=== PATIENT | female | born 1935 | race Caucasian/White ===

== ENCOUNTER 2017-07-27 18:25 | Observation (INO) | payer MEDICARE, OTHER ==
[~2017-07-27] VITALS: Ht 157.5 cm; Wt 92.4 kg
[~2017-07-27 18:25] MED LIST: BACTRIM DS1 TAB PO; CITALOPRAM HYDR10 MG PO; COUMADIN5 MG PO; LASIX 40 MG40 MG/TAB PO; LEVOTHYROXIN50 MCG PO; LOPRESSOR50 M1 PO; OXYBUTYNIN5 M1 PO; PRAVASTATIN SOD20 MG PO; SENNOSIDES-DOCU1 TAB PO; TRAMADOL HCL50 MG PO
--- NOTE | 2017-07-27 18:33 | NUR ---
EMS TO ER ROOM 14, TO BED
[2017-07-27 19:05] LABS: HEMATOCRIT 30.9 % (37.0-47.0); HEMOGLOBIN 9.5 g/dl (12.0-16.0); MEAN CELL VOLUME 93.4 fL CALC (80.0-100.0); MEAN CORPUSCULAR HGB 28.7 pG CALC (26.0-32.0); MEAN CORPUSCULAR HGB CONC 30.7 g/L CALC (32.0-36.0); NEUT# 14.73 thou/uL (2.00-7.15); RED BLOOD COUNT 3.31 mill/uL (4.20-5.60); RED CELL DISTRI WIDTH 15.8 % (11.5-15.5)
[2017-07-27 19:20] LABS: ALBUMIN 3.4 g/dL (3.2-5.0); ALKALINE PHOSPHATASE 71 u/l (38-126); ANION GAP 19 (6-22 (CALC)); BILIRUBIN, TOTAL 0.5 mg/dL (0.0-1.4); BUN 26 mg/dL (8-23); BUN/CREATININE RATIO 18 (12-20 (CALC)); CARBON DIOXIDE 18 mmol/l (22-30); CHLORIDE 103 mmol/l (95-108); CREATININE 1.5 mg/dL (0.5-1.0); GFR 33 ML/MIN (>=60 (CALC)); GFR FOR AFR.AMER. 40 ML/MIN (>=60 (CALC)); POTASSIUM 4.3 mmol/l (3.5-5.1); SGOT/AST 28 u/l (9-36); SGPT/ALT 24 u/l (11-66); SODIUM 137 mmol/l (137-146); TOTAL PROTEIN 6.4 g/dL (6.3-8.2)
[2017-07-27 19:21] LABS: IMMATURE GRANULOCYTES 9.5 % (0.0-1.0)
[2017-07-27 19:33] LABS: MYOGLOBIN 49 ng/mL (0 - 62)
[2017-07-27] MEDS ORDERED: CALCIUM600 MG PO (20:09)
[2017-07-27] MEDS ORDERED: GLUCOSAMINE CHONDROI PO (20:09)
[2017-07-27] MEDS ORDERED: PREDNISONE5 M2 PO (20:14)
[2017-07-27 21:15] VITALS: BP 98/64
--- NOTE | 2017-07-27 21:15 | NUR ---
RECEIVED FROM ER VIA STRETCHER ACCOMPANIED BY ER NURSE, OUT OF STRETCHER TO STANDING SCALE THEN TO BED WITH TWO PERSON ASSISTANCE. A/O X3, RESPIRATIONS EVEN AND UNLABORED ON O2 @2L VIA NC. ORIENTED TO USE CALL LIGHT FOR ASSISTANCE, NS INFUSING TO LAC AT 100/HR. DENIES PAIN OR DISCOMFORT, PROVIDED WITH JELLOW PER PT REQUEST. WILL CONTINUE TO MONITOR.
--- NOTE | 2017-07-27 21:27 | NUR ---
PT ADMITTED TO ROOM 282, REPORT WAS TO CATHERINE PRIOR TO ADMISSION.
[2017-07-27 22:05] LABS: INTERNATIONAL NORMALIZED RATIO 5.2 RATIO (0.7-1.3)
[2017-07-28 00:02] VITALS: BP 92/51
--- NOTE | 2017-07-28 01:20 | NUR ---
OOB TO BSC WITH ONE PERSON ASSISTANCE, PT SOB WITH ACTIVITY, C/O OF FEELING HOT. VOIDING [place]ANT [place] URINE THAT WAS ABSORBED BY TOILET PAPER, WILL OBTAIN SPECIMEN WITH NEXT VOID. JESSIE HALL LPN CALLED STATES PT'S HR UP TO 170'S, IN TO ROOM FOR VITALS CHECK. B/P 96/50, HR DOWN TO 120'S. NS INFUSING TO LAC AT 100CC/HR. WILL CONTINUE TO MONITOR.
[2017-07-28 03:07] LABS: HEMATOCRIT 21.9 % (37.0-47.0); HEMOGLOBIN 7.1 g/dl (12.0-16.0)
[2017-07-28 03:20] LABS: CREATININE 1.7 mg/dL (0.5-1.0); POTASSIUM 4.6 mmol/l (3.5-5.1)
--- NOTE | 2017-07-28 03:45 | NUR ---
1ST UNIT OF BLOOD SPIKED BY Naomi OZUNA RN, O-NEGATIVE EMERGENCY.
--- NOTE | 2017-07-28 03:55 | NUR ---
ACCUCHECK 363, 18FR, KINSEY INSERTED BY KATERIN FERRERA, TOLERATED WELL.
--- NOTE | 2017-07-28 04:00 | NUR ---
ATTEMPTED TO CALL SIVAKUMAR/PT'S SON AT [phone], AND PT'S BOYFRIED/BREANNA VELASQUEZ AT [phone] TO UPDATE ON PT'S CONDITION PER PT'S REQUEST, MESSAGE LEFT NO ANSWEAR AT THIS TIME.
[2017-07-28 04:08] VITALS: BP 90/54
--- NOTE | 2017-07-28 04:21 | NUR ---
FIRST UNIT OF FFP'S SPIKED BY KATERIN RN, INFUSING TO RFA WITH NO COMPLICATIONS.
[2017-07-28 04:22] LABS: INTERNATIONAL NORMALIZED RATIO 5.5 RATIO (0.7-1.3)
[2017-07-28 04:23] LABS: PROTHROMBIN TIME 64.1 SECONDS (9.0-12.5)
[2017-07-28 04:43] VITALS: BP 84/43
--- NOTE | 2017-07-28 04:46 | NUR ---
1ST UNIT OF FFP COMPLETE, 2ND UNITS SPIKED BY KATERIN RN, INFUSING WITH NO COMPLICATIONS, PT A/O X3, RESPIRATIONS EVEN AND UNLABORED. 1ST UNIT OF PRBC'S CONTINUE TO INFUSE TO LAC WITH NO COMPLICATIONS.
[2017-07-28 05:04] VITALS: BP 104/49
--- NOTE | 2017-07-28 05:20 | NUR ---
CALL RECEIVED FROM IBRAHIMA WITH [facility] @ 0065. ADVISED PT HAS BEEN ACCEPTED TO [facility] UNDER SERVICES OF DR CHEPE PERKINS (HOSPITALIST) AND DR YAZAN MARIN (GOLD PLATER). ASKED TO FAX FACESHEET TO [phone], WILL CALL BACK WITH ROOM ASSIGNMENT ONCE AVAILABLE.
[2017-07-28 05:35] VITALS: BP 102/67
--- NOTE | 2017-07-28 05:52 | NUR ---
1ST UNIT OF PRBC'S COMPLETE, 2ND UNIT OF PRBC'S SPIKED BY CHRISTIANE FERRERA, INFUSING WITH NO COMPLICATIONS. PT IS A/O X3, RESPIRATIONS EVEN AND UNLABORED. HR 116.
--- NOTE | 2017-07-28 06:11 | NUR ---
CONTACTED [facility] @ [phone], SPOKE WITH IBRAHIMA. PT INFORMATION PROVIDED. ADVISED WOULD CONTACT HOSPITALIST FOR DOCTOR TO DOCTOR CONFERENCE.
--- NOTE | 2017-07-28 06:12 | NUR ---
CALL PLACED TO [facility] @ 4414. SPOKE WITH IBRAHIMA. ADVISED THAT HOSPITALIST IS CURRENTLY BUSY AND WOULD CONTACT PHYSICIAN SOON POSSIBLE.
[2017-07-28 06:13] VITALS: BP 112/57
--- NOTE | 2017-07-28 06:14 | NUR ---
CALL RECEIVED GEETHA ALEXANDRA WITH [facility] @ [phone]. CONNECTED DR RUSH WITH DR CHEPE PERKINS ([facility] HOSPITALIST). ACCEPTS PT FOR TRANSFER, PER DR PERKINS WOULD HAVE WELL DIGGER ON FOR PT CARE.
--- NOTE | 2017-07-28 06:15 | NUR ---
CALL RECEIVED FROM IBRAHIMA WITH [facility]. BED ASSIGNMENT MADE TO ICU 5TH FLOOR RM # [id number]. REPORT # [phone].
--- NOTE | 2017-07-28 06:19 | NUR ---
CALL PLACED TO [facility] @ 0557, PT INFORMATION GIVEN TO KALLI GARCIA 30-40 MIN.
--- NOTE | 2017-07-28 06:36 | NUR ---
NURSE TO NURSE REPORT GIVEN TO DAILY ZAMORA RN AT [facility], PT'S ROOM ASSIGNEMENT ICU 5TH FLOOR [id number].
--- NOTE | 2017-07-28 06:45 | NUR ---
TRANSFERRED TO [facility] VIA STRETCHER ACCOMPANIED BY [facility]. ALL BELONGINS SENT WITH PT.
== END 2017-07-28 06:45 | disposition short-term general hospital (02) ==
LOC: ED 18:25 → ED-I 19:36 → ED 19:56 → MS2 19:57
PROVIDERS: Emergency Medicine; Nurse Practitioner Family; ADMIT Internal Medicine; ATTEND Internal Medicine
PROC: 30233K1 Transfusion of Nonautologous Frozen Plasma into Peripheral Vein, Percutaneous Approach (ICD-10-PCS; principal; 2017-07-28)
PROC: 30233N1 Transfusion of Nonautologous Red Blood Cells into Peripheral Vein, Percutaneous Approach (ICD-10-PCS; 2017-07-28)
PROC: 30233K1 Transfusion of Nonautologous Frozen Plasma into Peripheral Vein, Percutaneous Approach (ICD-10-PCS; 2017-07-28)
PROC: 30233N1 Transfusion of Nonautologous Red Blood Cells into Peripheral Vein, Percutaneous Approach (ICD-10-PCS; 2017-07-28)
DX: M79.81 Nontraumatic hematoma of soft tissue (principal); D68.32 Hemorrhagic disorder due to extrinsic circulating anticoagulants; T45.515A Adverse effect of anticoagulants, initial encounter; J44.1 Chronic obstructive pulmonary disease with (acute) exacerbation; I48.91 Unspecified atrial fibrillation; I11.0 Hypertensive heart disease with heart failure; I50.9 Heart failure, unspecified; D50.0 Iron deficiency anemia secondary to blood loss (chronic)
CPT/HCPCS: P9016; S0164

== ENCOUNTER 2019-08-07 17:54 | Inpatient (IN) | payer MEDICARE, OTHER ==
[~2019-08-07] VITALS: Ht 157.5 cm; Wt 94.1 kg
[~2019-08-07 17:54] MED LIST changes: +CALCIUM600 MG PO; +GLUCOSAMINE CHONDROI PO; +PREDNISONE5 M2 PO
[2019-08-07 18:56] LABS: HEMATOCRIT 43.5 % (37.0-47.0); HEMOGLOBIN 14.1 g/dl (12.0-16.0); IMMATURE GRANULOCYTES 0.8 % (0.0-5.0); MEAN CORPUSCULAR HGB 28.4 pG CALC (26.0-32.0); MEAN CORPUSCULAR HGB CONC 32.4 g/L CALC (32.0-36.0); NEUT# 5.16 thou/uL (2.00-7.15); RED BLOOD COUNT 4.96 mill/uL (4.20-5.60); RED CELL DISTRI WIDTH 15.3 % (11.5-15.5)
[2019-08-07 18:59] LABS: MEAN CELL VOLUME 87.7 fL CALC (80.0-100.0)
[2019-08-07 19:10] LABS: ALBUMIN 4.4 g/dL (3.2-5.0); ALKALINE PHOSPHATASE 108 u/l (38-126); ANION GAP 15 (6-22 (CALC)); BILIRUBIN, TOTAL 1.5 mg/dL (0.0-1.4); BUN 13 mg/dL (8-23); BUN/CREATININE RATIO 16 (12-20 (CALC)); CHLORIDE 100 mmol/l (95-108); CREATININE 0.8 mg/dL (0.5-1.0); GFR > 60 ML/MIN (>=60 (CALC)); GFR FOR AFR.AMER. > 60 ML/MIN (>=60 (CALC)); POTASSIUM 4.3 mmol/l (3.5-5.1); SGOT/AST 43 u/l (9-36); SODIUM 134 mmol/l (137-146); TOTAL PROTEIN 7.7 g/dL (6.3-8.2)
[2019-08-07 19:11] LABS: CARBON DIOXIDE 23 mmol/l (22-30)
[2019-08-07 19:22] LABS: MYOGLOBIN 41 ng/mL (0 - 62)
[2019-08-07 19:31] LABS: PROTHROMBIN TIME 48.4 SECONDS (9.0-12.5)
[2019-08-07 20:45] VITALS: BP 170/70
[2019-08-07 21:00] VITALS: BP 133/63
[2019-08-07 21:15] VITALS: BP 143/78
[2019-08-07 21:30] VITALS: BP 143/68
[2019-08-07 22:00] VITALS: BP 115/66
[2019-08-07 23:00] VITALS: BP 112/66
[2019-08-08] VITALS (10 sets, daily range): BP systolic 111–167; BP diastolic 56–84
[2019-08-08 05:12] LABS: URINE BILIRUBIN - DIPSTICK NEGATIVE (NEGATIVE); URINE BLOOD DIPSTICK TRACE-INTACT (NEGATIVE); URINE COLOR YELLOW; URINE GLUCOSE - DIPSTICK NEGATIVE (NEGATIVE); URINE KETONE NEGATIVE (NEGATIVE); URINE NITRITE - DIPSTICK NEGATIVE (Negative); URINE PROTEIN - DIPSTICK 30 mg/dL (NEG-TRACE); URINE SPECIFIC GRAVITY 1.025; URINE UROBILINOGEN - DIPSTICK 0.2 E.U./dL (0.2)
[2019-08-08 05:14] LABS: URINE LEUK ESTERASE TRACE (NEGATIVE)
[2019-08-08 05:17] LABS: URINE RBC 0-2 RBC/hpf (0-5); URINE WBC 0-2 WBC/hpf (0-5)
[2019-08-08 05:18] LABS: URINE EPITHELIAL CELLS MODERATE EPI/hpf (0-FEW); URINE MUCUS MODERATE hpf (NONE-FEW)
[2019-08-08 05:25] LABS: HEMATOCRIT 41.9 % (37.0-47.0); HEMOGLOBIN 13.6 g/dl (12.0-16.0); IMMATURE GRANULOCYTES 1.2 % (0.0-5.0); MEAN CELL VOLUME 88.2 fL CALC (80.0-100.0); MEAN CORPUSCULAR HGB 28.6 pG CALC (26.0-32.0); MEAN CORPUSCULAR HGB CONC 32.5 g/L CALC (32.0-36.0); NEUT# 4.47 thou/uL (2.00-7.15); RED BLOOD COUNT 4.75 mill/uL (4.20-5.60); RED CELL DISTRI WIDTH 15.4 % (11.5-15.5)
[2019-08-08 06:00] LABS: ALBUMIN 3.9 g/dL (3.2-5.0); ALKALINE PHOSPHATASE 88 u/l (38-126); ANION GAP 15 (6-22 (CALC)); BILIRUBIN, TOTAL 1.4 mg/dL (0.0-1.4); BUN 14 mg/dL (8-23); BUN/CREATININE RATIO 15 (12-20 (CALC)); CARBON DIOXIDE 22 mmol/l (22-30); CHLORIDE 101 mmol/l (95-108); GFR 53 ML/MIN (>=60 (CALC)); GFR FOR AFR.AMER. > 60 ML/MIN (>=60 (CALC)); POTASSIUM 4.1 mmol/l (3.5-5.1); SGOT/AST 35 u/l (9-36); SODIUM 134 mmol/l (137-146)
[2019-08-09] VITALS: BP 151/102
[2019-08-09 04:00] VITALS: BP 156/72
[2019-08-09 05:16] LABS: HEMOGLOBIN 13.1 g/dl (12.0-16.0); MEAN CELL VOLUME 90.7 fL CALC (80.0-100.0); MEAN CORPUSCULAR HGB 28.3 pG CALC (26.0-32.0); MEAN CORPUSCULAR HGB CONC 31.2 g/L CALC (32.0-36.0); RED BLOOD COUNT 4.63 mill/uL (4.20-5.60); RED CELL DISTRI WIDTH 15.4 % (11.5-15.5)
[2019-08-09 05:39] LABS: ANION GAP 10 (6-22 (CALC)); BUN 16 mg/dL (8-23); BUN/CREATININE RATIO 19 (12-20 (CALC)); CARBON DIOXIDE 26 mmol/l (22-30); CHLORIDE 102 mmol/l (95-108); CREATININE 0.8 mg/dL (0.5-1.0); GFR > 60 ML/MIN (>=60 (CALC)); GFR FOR AFR.AMER. > 60 ML/MIN (>=60 (CALC)); POTASSIUM 4.2 mmol/l (3.5-5.1); SODIUM 134 mmol/l (137-146)
[2019-08-09 08:00] VITALS: BP 134/61
[2019-08-09 10:43] LABS: INTERNATIONAL NORMALIZED RATIO 2.7 RATIO (0.7-1.3); PROTHROMBIN TIME 27.4 SECONDS (9.0-12.5)
[2019-08-09 12:54] VITALS: BP 148/78
[2019-08-09 15:25] VITALS: BP 151/74
[2019-08-09 19:43] VITALS: BP 140/67
[2019-08-10] VITALS: BP 136/65
[2019-08-10 03:50] VITALS: BP 152/20; BP 152/70
[2019-08-10 05:36] LABS: HEMATOCRIT 41.5 % (37.0-47.0); MEAN CELL VOLUME 89.8 fL CALC (80.0-100.0); MEAN CORPUSCULAR HGB 28.1 pG CALC (26.0-32.0); MEAN CORPUSCULAR HGB CONC 31.3 g/L CALC (32.0-36.0); RED BLOOD COUNT 4.62 mill/uL (4.20-5.60); RED CELL DISTRI WIDTH 15.1 % (11.5-15.5)
[2019-08-10 05:43] LABS: INTERNATIONAL NORMALIZED RATIO 2.4 RATIO (0.7-1.3)
[2019-08-10 05:47] LABS: ANION GAP 13 (6-22 (CALC)); BUN 18 mg/dL (8-23); BUN/CREATININE RATIO 20 (12-20 (CALC)); CARBON DIOXIDE 25 mmol/l (22-30); CHLORIDE 101 mmol/l (95-108); CREATININE 0.9 mg/dL (0.5-1.0); GFR 60 ML/MIN (>=60 (CALC)); GFR FOR AFR.AMER. > 60 ML/MIN (>=60 (CALC)); MAGNESIUM 2.3 mg/dL (1.6-2.3); POTASSIUM 4.8 mmol/l (3.5-5.1); SODIUM 134 mmol/l (137-146)
[2019-08-10 08:00] VITALS: BP 121/59
[2019-08-10 11:15] VITALS: BP 126/72
[2019-08-10 13:47] LABS: INTERNATIONAL NORMALIZED RATIO 2.3 RATIO (0.7-1.3); PROTHROMBIN TIME 23.4 SECONDS (9.0-12.5)
[2019-08-10 16:33] VITALS: BP 139/57
[2019-08-10 19:15] VITALS: BP 118/51
[2019-08-11 00:16] VITALS: BP 123/60
[2019-08-11 04:00] VITALS: BP 139/64
[2019-08-11 05:48] LABS: HEMOGLOBIN 12.6 g/dl (12.0-16.0); MEAN CELL VOLUME 88.9 fL CALC (80.0-100.0); MEAN CORPUSCULAR HGB CONC 31.5 g/L CALC (32.0-36.0); RED BLOOD COUNT 4.5 mill/uL (4.20-5.60); RED CELL DISTRI WIDTH 14.9 % (11.5-15.5)
[2019-08-11 06:18] LABS: INTERNATIONAL NORMALIZED RATIO 3.7 RATIO (0.7-1.3); PROTHROMBIN TIME 36.8 SECONDS (9.0-12.5)
[2019-08-11 06:37] LABS: ANION GAP 11 (6-22 (CALC)); BUN 24 mg/dL (8-23); BUN/CREATININE RATIO 23 (12-20 (CALC)); CARBON DIOXIDE 28 mmol/l (22-30); CHLORIDE 100 mmol/l (95-108); GFR 53 ML/MIN (>=60 (CALC)); GFR FOR AFR.AMER. > 60 ML/MIN (>=60 (CALC)); POTASSIUM 4.8 mmol/l (3.5-5.1); SODIUM 134 mmol/l (137-146)
[2019-08-11 08:10] VITALS: BP 141/84
[2019-08-11 12:00] VITALS: BP 140/72
[2019-08-11 16:00] VITALS: BP 147/92
[2019-08-11 19:00] VITALS: BP 126/58
[2019-08-12 03:48] VITALS: BP 140/72
[2019-08-12 06:01] LABS: INTERNATIONAL NORMALIZED RATIO 5.2 RATIO (0.7-1.3)
[2019-08-12 06:02] LABS: PROTHROMBIN TIME 50.5 SECONDS (9.0-12.5)
[2019-08-12 08:00] VITALS: BP 158/64
[2019-08-12 12:26] LABS: INTERNATIONAL NORMALIZED RATIO 5.4 RATIO (0.7-1.3)
[2019-08-12 12:27] LABS: PROTHROMBIN TIME 52.2 SECONDS (9.0-12.5)
[2019-08-12 16:00] VITALS: BP 147/59
[2019-08-12 19:00] VITALS: BP 125/76
[2019-08-13 00:16] VITALS: BP 120/74
[2019-08-13 05:00] VITALS: BP 115/79
[2019-08-13 05:37] LABS: HEMATOCRIT 39.4 % (37.0-47.0); HEMOGLOBIN 12.7 g/dl (12.0-16.0); MEAN CELL VOLUME 89.1 fL CALC (80.0-100.0); MEAN CORPUSCULAR HGB 28.7 pG CALC (26.0-32.0); MEAN CORPUSCULAR HGB CONC 32.2 g/L CALC (32.0-36.0); RED BLOOD COUNT 4.42 mill/uL (4.20-5.60); RED CELL DISTRI WIDTH 14.9 % (11.5-15.5)
[2019-08-13 06:19] LABS: ANION GAP 12 (6-22 (CALC)); BUN 26 mg/dL (8-23); BUN/CREATININE RATIO 29 (12-20 (CALC)); CARBON DIOXIDE 30 mmol/l (22-30); CHLORIDE 98 mmol/l (95-108); CREATININE 0.9 mg/dL (0.5-1.0); GFR 60 ML/MIN (>=60 (CALC)); GFR FOR AFR.AMER. > 60 ML/MIN (>=60 (CALC)); MAGNESIUM 2.8 mg/dL (1.6-2.3); POTASSIUM 4.7 mmol/l (3.5-5.1); SODIUM 135 mmol/l (137-146)
[2019-08-13 07:27] LABS: INTERNATIONAL NORMALIZED RATIO 4.9 RATIO (0.7-1.3); PROTHROMBIN TIME 48.1 SECONDS (9.0-12.5)
[2019-08-13 08:00] VITALS: BP 145/64
[2019-08-13 10:30] VITALS: BP 144/82
[2019-08-13] MEDS ORDERED: PREDNISONE10 MG PO (13:05)
== END 2019-08-13 16:18 | disposition home health service (06) | DRG 193 ==
LOC: ED 17:54 → ED-I 19:25 → ED 19:32 → ICU 19:33 → MS2 08-09 12:45
PROVIDERS: Emergency Medicine; Internal Medicine; Nurse Practitioner Family; ADMIT Internal Medicine; ATTEND Internal Medicine
PROC: 3E0234Z Introduction of Serum, Toxoid and Vaccine into Muscle, Percutaneous Approach (ICD-10-PCS; principal; 2019-08-09)
DX: J18.9 Pneumonia, unspecified organism (principal); J96.21 Acute and chronic respiratory failure with hypoxia; J44.0 Chronic obstructive pulmonary disease with (acute) lower respiratory infection; D68.4 Acquired coagulation factor deficiency; I48.91 Unspecified atrial fibrillation; I25.10 Atherosclerotic heart disease of native coronary artery without angina pectoris; I11.0 Hypertensive heart disease with heart failure; I50.9 Heart failure, unspecified; E78.5 Hyperlipidemia, unspecified; M19.90 Unspecified osteoarthritis, unspecified site; T45.515A Adverse effect of anticoagulants, initial encounter; E03.9 Hypothyroidism, unspecified; Z87.891 Personal history of nicotine dependence; Z99.81 Dependence on supplemental oxygen; Z79.01 Long term (current) use of anticoagulants; Z23 Encounter for immunization

== ENCOUNTER 2020-08-22 15:37 | Emergency (ER) | payer MEDICARE, OTHER ==
[~2020-08-22] VITALS: Ht 157.5 cm; Wt 90.0 kg
[~2020-08-22 15:37] MED LIST changes: +PREDNISONE10 MG PO
[2020-08-22 18:27] LABS: HEMATOCRIT 40.1 % (37.0-47.0); HEMOGLOBIN 11.9 g/dl (12.0-16.0); IMMATURE GRANULOCYTES 0.9 % (0.0-5.0); MEAN CORPUSCULAR HGB 28.2 pG CALC (26.0-32.0); MEAN CORPUSCULAR HGB CONC 29.7 g/dL CAL (32.0-36.0); NEUT# 3.19 thou/uL (2.00-7.15); RED BLOOD COUNT 4.22 mill/uL (4.20-5.60); RED CELL DISTRI WIDTH 15.6 % (11.5-15.5)
[2020-08-22 18:56] LABS: INTERNATIONAL NORMALIZED RATIO 3.9 RATIO (0.7-1.3); PROTHROMBIN TIME 38.8 SECONDS (9.0-12.5)
[2020-08-22 18:57] LABS: ALBUMIN 4.4 g/dL (3.2-5.0); BILIRUBIN, TOTAL 1.2 mg/dL (0.0-1.4); CREATININE 1.7 mg/dL (0.5-1.0); POTASSIUM 4.9 mmol/l (3.5-5.1); TOTAL PROTEIN 7.7 g/dL (6.3-8.2)
[2020-08-22 22:38] VITALS: BP 121/74
== END 2020-08-22 22:12 ==
LOC: ED 15:37
PROVIDERS: Emergency Medicine
DX: S32.020A Wedge compression fracture of second lumbar vertebra, initial encounter for closed fracture (principal); J18.9 Pneumonia, unspecified organism; I25.10 Atherosclerotic heart disease of native coronary artery without angina pectoris; I48.91 Unspecified atrial fibrillation; J44.9 Chronic obstructive pulmonary disease, unspecified; I11.0 Hypertensive heart disease with heart failure; I50.9 Heart failure, unspecified; W18.30XA Fall on same level, unspecified, initial encounter; Y92.512 Supermarket, store or market as the place of occurrence of the external cause; Y99.9 Unspecified external cause status; Z96.641 Presence of right artificial hip joint; Z87.01 Personal history of pneumonia (recurrent); Z85.3 Personal history of malignant neoplasm of breast

== ENCOUNTER 2020-09-30 14:55 | Inpatient (IN) | payer MEDICARE, OTHER ==
[~2020-09-30] VITALS: Ht 157.5 cm; Wt 102.0 kg
[2020-09-30 16:17] LABS: URINE BILIRUBIN - DIPSTICK NEGATIVE (NEGATIVE); URINE BLOOD DIPSTICK NEGATIVE (NEGATIVE); URINE COLOR YELLOW; URINE GLUCOSE - DIPSTICK NEGATIVE (NEGATIVE); URINE KETONE NEGATIVE (NEGATIVE); URINE LEUK ESTERASE NEGATIVE (NEGATIVE); URINE PROTEIN - DIPSTICK NEGATIVE (NEG-TRACE); URINE UROBILINOGEN - DIPSTICK 0.2 E.U./dL (0.2)
[2020-09-30 16:18] LABS: HEMATOCRIT 34.9 % (37.0-47.0); HEMOGLOBIN 10.7 g/dl (12.0-16.0); IMMATURE GRANULOCYTES 1.5 % (0.0-5.0); MEAN CELL VOLUME 93.6 fL CALC (80.0-100.0); MEAN CORPUSCULAR HGB 28.7 pG CALC (26.0-32.0); MEAN CORPUSCULAR HGB CONC 30.7 g/dL CAL (32.0-36.0); NEUT# 2.27 thou/uL (2.00-7.15); RED BLOOD COUNT 3.73 mill/uL (4.20-5.60); RED CELL DISTRI WIDTH 16.6 % (11.5-15.5)
[2020-09-30 16:21] LABS: URINE NITRITE - DIPSTICK NEGATIVE (Negative)
[2020-09-30 17:24] LABS: ALBUMIN 4.1 g/dL (3.2-5.0); ALKALINE PHOSPHATASE 146 u/l (38-126); BUN 32 mg/dL (8-23); BUN/CREATININE RATIO 23 (12-20 (CALC)); CHLORIDE 94 mmol/l (95-108); CREATININE 1.4 mg/dL (0.5-1.0); GFR 36 ML/MIN (>=60 (CALC)); GFR FOR AFR.AMER. 43 ML/MIN (>=60 (CALC)); POTASSIUM 4.6 mmol/l (3.5-5.1); SGOT/AST 30 u/l (9-36); SODIUM 134 mmol/l (137-146); TOTAL PROTEIN 7.8 g/dL (6.3-8.2)
[2020-09-30 17:30] LABS: ANION GAP 11 (6-22 (CALC)); CARBON DIOXIDE 34 mmol/l (22-30)
[2020-09-30] MEDS ORDERED: VOLTAREN TOP (18:48)
[2020-09-30] MEDS ORDERED: VISTARIL PO (18:50)
[2020-09-30] MEDS ORDERED: KLOR-CON M2020 MEQ PO (18:51)
[2020-09-30] MEDS ORDERED: SENNA-TABS8.6 MG PO (18:58)
[2020-09-30] MEDS ORDERED: WARFARIN5 MG PO (18:58)
[2020-09-30 19:40] VITALS: BP 142/86
[2020-10-01] VITALS: BP 116/63
[2020-10-01 04:02] VITALS: BP 107/64
[2020-10-01 06:11] LABS: CREATININE 1.3 mg/dL (0.5-1.0); POTASSIUM 4.1 mmol/l (3.5-5.1)
[2020-10-01 06:13] LABS: MAGNESIUM 1.9 mg/dL (1.6-2.3)
[2020-10-01 08:03] VITALS: BP 110/51
[2020-10-01 08:34] LABS: INTERNATIONAL NORMALIZED RATIO 2.2 RATIO (0.7-1.3); PROTHROMBIN TIME 22.2 SECONDS (9.0-12.5)
[2020-10-01 10:33] VITALS: BP 108/58
[2020-10-01 15:00] VITALS: BP 104/62
[2020-10-01 19:00] VITALS: BP 110/71
[2020-10-02 00:30] VITALS: BP 135/71
[2020-10-02 04:00] VITALS: BP 129/63
[2020-10-02 05:41] LABS: HEMATOCRIT 32.1 % (37.0-47.0); HEMOGLOBIN 9.8 g/dl (12.0-16.0); IMMATURE GRANULOCYTES 1.3 % (0.0-5.0); MEAN CELL VOLUME 92.5 fL CALC (80.0-100.0); MEAN CORPUSCULAR HGB 28.2 pG CALC (26.0-32.0); MEAN CORPUSCULAR HGB CONC 30.5 g/dL CAL (32.0-36.0); NEUT# 1.7 thou/uL (2.00-7.15); RED BLOOD COUNT 3.47 mill/uL (4.20-5.60); RED CELL DISTRI WIDTH 16.6 % (11.5-15.5)
[2020-10-02 05:59] LABS: INTERNATIONAL NORMALIZED RATIO 2.1 RATIO (0.7-1.3); PROTHROMBIN TIME 20.9 SECONDS (9.0-12.5)
[2020-10-02 06:06] LABS: ALBUMIN 3.4 g/dL (3.2-5.0); BILIRUBIN, TOTAL 0.9 mg/dL (0.0-1.4); CREATININE 1.3 mg/dL (0.5-1.0); TOTAL PROTEIN 6.7 g/dL (6.3-8.2)
[2020-10-02 07:42] VITALS: BP 135/73
[2020-10-02 15:14] VITALS: BP 119/68
[2020-10-02 19:00] VITALS: BP 139/74
[2020-10-03 04:00] VITALS: BP 130/63
[2020-10-03 07:11] LABS: HEMATOCRIT 32.6 % (37.0-47.0); MEAN CELL VOLUME 93.1 fL CALC (80.0-100.0); MEAN CORPUSCULAR HGB 28.6 pG CALC (26.0-32.0); MEAN CORPUSCULAR HGB CONC 30.7 g/dL CAL (32.0-36.0); RED BLOOD COUNT 3.5 mill/uL (4.20-5.60); RED CELL DISTRI WIDTH 16.5 % (11.5-15.5)
[2020-10-03 07:30] VITALS: BP 136/70
[2020-10-03 07:36] LABS: CREATININE 1.2 mg/dL (0.5-1.0); MAGNESIUM 1.9 mg/dL (1.6-2.3); POTASSIUM 3.7 mmol/l (3.5-5.1)
[2020-10-03 07:44] LABS: INTERNATIONAL NORMALIZED RATIO 2.2 RATIO (0.7-1.3)
[2020-10-03 10:54] VITALS: BP 122/55
[2020-10-03 14:38] VITALS: BP 132/63
[2020-10-03 19:45] VITALS: BP 140/79
[2020-10-04 00:25] VITALS: BP 148/27
[2020-10-04 04:10] VITALS: BP 142/71
[2020-10-04 05:39] LABS: INTERNATIONAL NORMALIZED RATIO 2.6 RATIO (0.7-1.3); PROTHROMBIN TIME 26.6 SECONDS (9.0-12.5)
[2020-10-04 05:40] LABS: ANION GAP 9 (6-22 (CALC)); BUN 25 mg/dL (8-23); BUN/CREATININE RATIO 24 (12-20 (CALC)); CARBON DIOXIDE 39 mmol/l (22-30); CHLORIDE 93 mmol/l (95-108); GFR 53 ML/MIN (>=60 (CALC)); GFR FOR AFR.AMER. > 60 ML/MIN (>=60 (CALC)); POTASSIUM 3.5 mmol/l (3.5-5.1); SODIUM 137 mmol/l (137-146)
[2020-10-04 05:52] LABS: HEMOGLOBIN 10.9 g/dl (12.0-16.0); MEAN CELL VOLUME 91.4 fL CALC (80.0-100.0); MEAN CORPUSCULAR HGB 28.5 pG CALC (26.0-32.0); MEAN CORPUSCULAR HGB CONC 31.1 g/dL CAL (32.0-36.0); RED BLOOD COUNT 3.83 mill/uL (4.20-5.60); RED CELL DISTRI WIDTH 16.9 % (11.5-15.5)
[2020-10-04 09:52] VITALS: BP 148/66
[2020-10-04 14:15] VITALS: BP 123/59
[2020-10-04 20:00] VITALS: BP 133/71
[2020-10-05 04:00] VITALS: BP 132/70
[2020-10-05 05:48] LABS: HEMATOCRIT 33.1 % (37.0-47.0); HEMOGLOBIN 10.1 g/dl (12.0-16.0); MEAN CELL VOLUME 92.2 fL CALC (80.0-100.0); MEAN CORPUSCULAR HGB 28.1 pG CALC (26.0-32.0); MEAN CORPUSCULAR HGB CONC 30.5 g/dL CAL (32.0-36.0); RED BLOOD COUNT 3.59 mill/uL (4.20-5.60); RED CELL DISTRI WIDTH 16.2 % (11.5-15.5)
[2020-10-05 06:03] LABS: ALBUMIN 3.6 g/dL (3.2-5.0); BILIRUBIN, TOTAL 1.1 mg/dL (0.0-1.4); CREATININE 1.1 mg/dL (0.5-1.0); POTASSIUM 3.1 mmol/l (3.5-5.1); TOTAL PROTEIN 6.8 g/dL (6.3-8.2)
[2020-10-05 08:00] VITALS: BP 138/82
[2020-10-05] MEDS ORDERED: BUMETANIDE0.25 MG/ML PO (11:06)
[2020-10-05 11:40] VITALS: BP 115/66
[2020-10-05 14:30] VITALS: BP 118/61
[2020-10-05 19:38] VITALS: BP 104/52
[2020-10-06] VITALS: BP 118/68
[2020-10-06 04:19] VITALS: BP 118/66
[2020-10-06 07:42] VITALS: BP 138/83
[2020-10-06 09:12] VITALS: BP 138/83
[2020-10-06 10:20] LABS: INTERNATIONAL NORMALIZED RATIO 3.7 RATIO (0.7-1.3); PROTHROMBIN TIME 36.8 SECONDS (9.0-12.5)
[2020-10-06] MEDS ORDERED: BUMETANIDE2 MG PO (14:36)
== END 2020-10-06 14:58 | disposition home health service (06) | DRG 292 ==
LOC: ED 14:55 → ED-I 17:40 → ED 17:59 → MS2 18:00
PROVIDERS: Emergency Medicine; Nurse Practitioner; Nurse Practitioner Family; ADMIT Internal Medicine; ATTEND Internal Medicine
PROC: 0T9B70Z Drainage of Bladder with Drainage Device, Via Natural or Artificial Opening (ICD-10-PCS; principal; 2020-09-30)
DX: I13.0 Hypertensive heart and chronic kidney disease with heart failure and stage 1 through stage 4 chronic kidney disease, or unspecified chronic kidney disease (principal); N17.9 Acute kidney failure, unspecified; J96.11 Chronic respiratory failure with hypoxia; Z68.41 Body mass index [BMI] 40.0-44.9, adult; I50.9 Heart failure, unspecified; N18.9 Chronic kidney disease, unspecified; L89.152 Pressure ulcer of sacral region, stage 2; L89.326 Pressure-induced deep tissue damage of left buttock; J44.9 Chronic obstructive pulmonary disease, unspecified; I48.91 Unspecified atrial fibrillation; I25.10 Atherosclerotic heart disease of native coronary artery without angina pectoris; E78.5 Hyperlipidemia, unspecified; E03.9 Hypothyroidism, unspecified; E66.9 Obesity, unspecified; R32 Unspecified urinary incontinence; H35.30 Unspecified macular degeneration; M19.90 Unspecified osteoarthritis, unspecified site; Z87.891 Personal history of nicotine dependence; Z79.01 Long term (current) use of anticoagulants; Z98.890 Other specified postprocedural states; Z85.3 Personal history of malignant neoplasm of breast; Z20.822 Contact with and (suspected) exposure to COVID-19
CPT/HCPCS: G0378